=== PATIENT | female | born 1950 | race Caucasian/White ===

== ENCOUNTER 2016-05-28 06:32 | Day surgery (SDC) | payer BC ==
--- NOTE | ~2016-05-28 | EGD ---
EGD REPORT [facility] [address] [id number] NAME: HUONG PINA : [birth year] STATUS : REG [facility]#: [id number] AGE: 65 ADM/REG DATE : 05/28/16 MR#: [id number] REPORT SERV DATE: 05/28/16 DICTATED BY: DATE: REPORT STATUS : Draft TRANSCRIBED BY: [employer] DATE: 05/28/16 [facility] Patient Name: Huong Pina Date of : 1950 Attending MD: JEAN JAEGER MD Procedure Date No Time: 05/28/2016 Procedure: Upper GI endoscopy Indications: Cirrhosis with suspected esophageal varices Referring MD: ZELDA WORTHY MD Medicines: Propofol per Anesthesia Complications: No immediate complications. Procedure: Pre-Anesthesia Assessment: - ASA Grade Assessment: III - A patient with severe systemic disease. After obtaining informed consent, the endoscope was passed under direct vision. Throughout the procedure, the patient's blood pressure, pulse, and oxygen saturations were monitored continuously. The GIF [id number] was introduced through the mouth, and advanced to the second part of duodenum. The upper GI endoscopy was accomplished without difficulty. The patient tolerated the procedure well. Findings: There is no endoscopic evidence of varices in the entire esophagus. Evidence of an adjustable gastric banding was found in the cardia. The anastomosis was characterized by healthy appearing mucosa. Eveidence of gastric band at cardia with stenosis of the lumen The exam of the stomach was otherwise normal. The examined duodenum was normal. Impression: - An adjustable gastric banding was found, anastomosis characterized by healthy appearing mucosa. - Normal examined duodenum. Recommendation: - The patient will be observed post-procedure, until all discharge criteria are met. - Return to previous diet today. - The findings and recommendations were discussed with the patient and their family. - After the procedure, if you experience any pain in abdomen or chest,shortness of breath,fever,chills,blood in stool,rectal bleeding,vomiting of any material,nausea,black stools or weakness or dizziness, GO TO THE EMERGENCY IMMEDIATELY!!!!!!!!! EGD REPORT [facility] [address] [place] [place]. [address] NAME: HUONG PINA : [birth year] STATUS : REG [facility] PAT#: [id number] AGE: 65 ADM/REG DATE : 05/28/16 MR#: [id number] REPORT SERV DATE: 05/28/16 DICTATED BY: DATE: REPORT STATUS : Draft TRANSCRIBED BY: [employer] DATE: 05/28/16 Procedure Code(s): --- Professional --- 35833, Esophagogastroduodenoscopy, flexible, transoral; diagnostic, including collection of specimen(s) by brushing or washing, when performed (separate procedure) Diagnosis Code(s): --- Professional --- Z98.84, Bariatric surgery status K74.60, Unspecified cirrhosis of liver CPT copyright 2013 [employer]. All rights reserved. The codes documented in this report are preliminary and upon spike machine operator review may be revised to meet current compliance requirements. Jean Jaeger MD JEAN JAEGER MD 05/28/2016 8:23 AM This report has been signed electronically. Number of Addenda: 0 Note Initiated On: 05/28/2016 7:04 AM Scope Withdrawal Time 0 hours 0 minutes 0 seconds [address] [place] [address]
[~2016-05-28 06:32] MED LIST: ASAB PO; C25 PO; C5; C5 PO; CALCIUM CHEW PO; CALCIUM CHEWS PO; CALTRA600D PO; FISH-EPA1000 MG PO; FLONASE NAS; GLUCCHONDR PO; HALF81 PO; IBU400 PO; LEVOTHYROXIN175 MCG PO; LEVOTHYROXIN200 MCG PO; LOP25 PO; MUCINEX1200 MG PO; MULTIPLE VIT PO; MULTIVIT/MIN PO; PCET PO; PEPCID40 MG OR; PRILO PO; STOOL SOFTEN240 MG PO; TYLENOL ARTH650 MG PO; VICTOZA18 MG/3 ML SC; VITAMIN D31000 UNIT PO; VITC500 PO; VITE PO; [UNRECOGNIZED DRUG - OTHER] PO
[2016-09-15] MEDS ORDERED: CO Q-10100 MG PO (14:31)
== END 2016-05-28 23:59 | disposition home or self-care (01) ==
LOC: DMU 06:32
PROVIDERS: Internal Medicine Gastroenterology
PROC: 0DJ08ZZ Inspection of Upper Intestinal Tract, Via Natural or Artificial Opening Endoscopic (ICD-10-PCS; principal; 2016-05-28 08:00)
DX: K74.60 Unspecified cirrhosis of liver (principal); G47.30 Sleep apnea, unspecified; E03.9 Hypothyroidism, unspecified; E11.9 Type 2 diabetes mellitus without complications; Z98.84 Bariatric surgery status; Z88.2 Allergy status to sulfonamides; Z88.5 Allergy status to narcotic agent; Z79.899 Other long term (current) drug therapy; Z79.51 Long term (current) use of inhaled steroids
CPT/HCPCS: 82962